=== PATIENT | female | born 1990 | race Caucasian/White ===

== ENCOUNTER 2023-01-12 04:41 | Inpatient (IN) | payer BC, SELFPAY ==
[2023-01-12] VITALS (217 sets, daily range): BP systolic 56–149; BP diastolic 40–125; PULSE 32–148; RESP 16–18; TEMP 36.3–37.3; O2SAT 89–100; BMI 41.2
--- NOTE | 2023-01-12 04:41 | LDADM ---
This patient, Malgorzata Gonzalez, was admitted to Labor/Delivery/Recovery 103 on 01/12/23 at 04:41. Plans for labor, pain management and were discussed with patient. Patient/family oriented to hospital policies and general routines including ID bracelet, bed and alarms, visiting hours, pain management, procedures, bathroom and other care routines, personal items, smoking policy, room service/diet and guest tray routines, security routines, and visiting hours. Patient/Family are encouraged to report perceived risks to care and to ask questions if they do not understand what they are told or what they should do. See OBIX for further documentation.
[2023-01-12 06:07] LABS: Basophils Absolute Auto 0.1 K/mm3 (0.0-0.1); Basophils Percent Auto 0.4 % (0.2-1.2); Eosinophils Absolute Auto 0.1 K/mm3 (0-0.3); Eosinophils Percent Auto 0.7 % (0-4.4); Hematocrit 37.9 % (37.0-47.0); Hemoglobin 13.4 g/dL (12.0-15.0); Immature Granulocyte Absolute 0.13 K/mm3 (0.00-0.031); Immature Granulocyte Percent A 1.1 % (0-0.5); Lymphocytes Absolute Auto 1.85 K/mm3 (0.9-3.2); Lymphocytes Percent Auto 15.5 % (18.3-44.2); Mean Corpuscular HGB Conc 35.4 g/dl (32-36); Mean Corpuscular Hemoglobin 32.8 pg (26-34); Mean Corpuscular Volume 92.7 fl (80-100); Mean Platelet Volume 9.4 fl (7.4-10.4); Monocytes Absolute Auto 0.8 K/mm3 (0.1-0.6); Monocytes Percent Auto 7.1 % (2.6-8.5); Neutrophils Percent Auto 75.2 % (45.5-73.1); Platelet Count Result 217 k/mm3 (150-375); Red Blood Count 4.09 M/mm3 (4.2-5.4); Red Cell Distribution Width 14.1 % (11.5-14.5); White Blood Count 11.9 K/mm3 (4.5-10.0)
[2023-01-12] MEDS: OXYTOCIN 30 UNITS/NS 500 ML 30 UNITS/500 ML BAG 6 UNITS IV CONT (09:10)
[2023-01-12] MEDS: LACTATED RINGERS 1,000 ML 125 ML IV CONT ×3 (09:13→16:40)
[2023-01-12 10:02] LABS: Rapid Plasma Reagin Non-Reactive (NonReactive)
--- NOTE | 2023-01-12 12:23 | WPDANESEPPF ---
Anes - Initial Pre Proc Eval Date/Time: 01/12/23 12:23 Surgeon: Edwin Schulz MD Pre Op Diagnosis: LABOR Patient Data Age: 32 Gender: F Height: 1.7 m Weight: 119.5 kg Last Vital Signs Temp 36.5 C 01/12/23 11:05 Pulse 90 01/12/23 12:15 Resp 16 01/12/23 05:30 BP 134/88 01/12/23 12:15 O2 Del Method Room Air 01/12/23 06:30 Allergies Allergy/AdvReac Type Severity Reaction Status Date / Time No Known Allergies Allergy Verified 12/29/22 14:29 Home Medications Medication Instructions Recorded Confirmed Type cholecalciferol (vitamin D3) 50 50 mcg PO DAILY 12/29/22 01/12/23 History mcg (2,000 unit) tablet prenat.vits,yuki,vzr-andq-bdrcq 1 tablet PO HS 12/29/22 01/12/23 History Colace 01/12/23 History Laboratory Tests 01/12/23 01/12/23 01/12/23 06:00 06:00 06:00 WBC 11.9 K/mm3 H K/mm3 (4.5-10.0) RBC 4.09 M/mm3 L M/mm3 (4.2-5.4) Hgb 13.4 g/dL g/dL (12.0-15.0) Hct 37.9 % % (37.0-47.0) MCV 92.7 fl fl (80-100) MCH 32.8 pg pg (26-34) MCHC 35.4 g/dl g/dl (32-36) RDW 14.1 % % (11.5-14.5) Plt Count 217 k/mm3 k/mm3 (150-375) MPV 9.4 fl fl (7.4-10.4) Immature Gran % (Auto) 1.1 % H % (0-0.5) Neut % (Auto) 75.2 % H % (45.5-73.1) Lymph % (Auto) 15.5 % L % (18.3-44.2) Price % (Auto) 7.1 % % (2.6-8.5) Eos % (Auto) 0.7 % % (0-4.4) Baso % (Auto) 0.4 % % (0.2-1.2) Lymph # (Auto) 1.85 K/mm3 K/mm3 (0.9-3.2) [place] # (Auto) 0.8 K/mm3 H K/mm3 (0.1-0.6) Eos # (Auto) 0.1 K/mm3 K/mm3 (0-0.3) Baso # (Auto) 0.1 K/mm3 K/mm3 (0.0-0.1) Abs Immat Gran (auto) 0.13 K/mm3 H K/mm3 (0.00-0.031) Absolute Neuts (auto) 9.0 K/mm3 H K/mm3 (1.3-6.7) Absolute Nucleated RBC 0.0 K/mm3 K/mm3 (0.0-0.012) Nucleated RBC % 0.0 % % (0.0-0.2) RPR Non-reactive (NonReactive) Blood Type A Positive Antibody Screen Negative Patient hx anesthesia problems: none Family hx anesthesia problems: none Results Review: All pre-operative results and documents have been reviewed as part of the pre-operative evaluation. [facility] Family History Family History (Updated 12/29/22 @ 14:34 by Neetu Gallo RN) Grandparent Leukemia Grandparent Breast cancer Mother Celiac disease Social History Social History Smoking status: Never smoker Second hand tobacco smoke exposure: No Substance use: never Spiritual care concerns: No Anes - Eval Final PreProcedure Day of Procedure 01/12/23 12:23 Patient weight: morbidly obese Heart: regular rate and rhythm Lungs: clear to auscultation and normal air movement Airway: Mallampati scale class II Neurological: alert and oriented Last oral intake: >/= 8 hours ASA classification: III Emergent: no Anesthetic plan: proceed Anesthesia type and monitoring: regional epidural Results Review: All pre-operative results and documents have been reviewed as part of the pre-operative evaluation. Informed Consent: The patient's anesthetic plan and its attendant risks and benefits were discussed with the patient/family/POA. Questions were solicited and answers provided to the satisfaction of the patient/family/POA.
--- NOTE | 2023-01-12 12:50 | WPDOBADMIT ---
Obstetrics - Admit Note Admission Note: record reviewed. Additions to the history and/or subsequent changes in the physical findings follow. 32 y/o at 38 5/7 weeks with SROM at 0200 today, clear fluid. Intermittent contractions. GBS neg. AVSS NST reactive TOCO: irregular contractions; ABD soft, nontender, gravid, vertex EXT nontender Cervix 2/80/-3. Vertex. AROM forebag, with clear fluid. IUPC placed. A: IUP at term with SROM. P: Augment labor as needed. Anticipate .
--- NOTE | 2023-01-12 12:52 | PM.OBPNLAB ---
Pain Control Date/time seen: 01/12/23 12:52 Comments: Receiving oxytocin. Feeling more pain. About to have epidural placed. Contractions Monitor mode: Internal Contraction frequency: 2 Contraction pattern: Regular Status status: Category l Assessment and Plan Plan: continuous present management
[2023-01-12] MEDS: PHENYLEPHRINE 1,000 MCG/10 ML SYRINGE 100 MCG IV PUSH (13:03)
--- NOTE | 2023-01-12 17:12 | PM.OBPNLAB ---
Pain Control Date/time seen: 01/12/23 17:12 Comments: Pain OK Pelvic Exam Dilation (cm): 6 Effacement (%): 90 station: -1 Contractions Monitor mode: Internal Contraction frequency: 2 Contraction pattern: Regular Status status: Category l Assessment and Plan Plan: continuous present management
--- NOTE | 2023-01-12 22:54 | P.PCNOB_ITS ---
OB - Delivery Note Procedure Delivery date: 01/12/23 Procedure: Induction method: None Delivery augmentation: Pitocin Delivery monitor: External FHT, External Uterine, Internal FHT and Internal Uterine Route of delivery: Laceration Description: Perineal - 2nd Degree Delivery repair: vicryl (3-0) Specimen: Yes (cord blood) Quantitative Blood Loss (ml): 450 Anesthesia type: Epidural Disposition: PACU Complications: None Narrative: 32 y/o at 38 5/7 weeks gestation who presented to the hospital after a gush of clear fluid. SROM was diagnosed. Oxytocin was administered intravenously for labor augmentation. Amniotomy of a forebag was performed with return of clear fluid. She received an epidural for pain control. Her labor p rogressed and her cervix dilated completely. She pushed with good effort and delivered the infant's head to the perineum. A loose nuchal cord was splinted and the body delivered. The nose and mouth were bulb suctioned. After a delay, the cord was clamped and cut. The infant was handed off the field. Cord blood was collected. The placenta delivered spontaneously and was grossly normal in appearance. The usual 3 vessel cord was noted. A second degree midline perineal laceration was sustained. This was reapproximated using 3 0 Vicryl in the usual layered fashion. Excellent hemostasis resulted as did excellent reapproximation of the normal anatomy. Needle and instrument counts were correct. The patient was taken to recovery room in stable condition. The infant went to the nursery in stable condition. I was present and scrubbed for the entire delivery. Baby Date of : 01/12/23 Time of : 22:25 Weeks of gestation at delivery: 38 Infant gender: Male Weight (pounds): 9 Weight (ounces): 4 presentation: vertex position: Right Occiput Anterior Placenta delivery description: Spontaneous and Normal Configuration Cord Vessel Description: 3 Vessels, Nuchal Cord and Delayed Cord Clamping score one minute: 6 score five minutes: 9
--- NOTE | 2023-01-12 22:57 | PM.OBDSVD ---
DS: Admitting Diagnosis Discharge Date 01/14/23 Admitting Diagnosis IUP at 38 5/7 weeks SROM DS: Discharge Diagnosis Discharge Diagnosis (1) (normal spontaneous vaginal delivery): Code(s): O80 - Encounter for full-term uncomplicated delivery Status: Acute OB - DS: Summary OB Procedures : None OB Procedures Intrapartum: Spontaneous Vag Delivery OB Procedures: : None Time Spent with Patient Time attestation: Total time spent providing and/or coordinating discharge services: DS: Data Data Completed and Pending Labs on day of discharge: Labs from last 24 hours 01/12/23 01/12/23 01/12/23 06:00 06:00 06:00 WBC 11.9 H RBC 4.09 L Hgb 13.4 Hct 37.9 MCV 92.7 MCH 32.8 MCHC 35.4 RDW 14.1 Plt Count 217 MPV 9.4 Immature Gran % (Auto) 1.1 H Neut % (Auto) 75.2 H Lymph % (Auto) 15.5 L [place] % (Auto) 7.1 Eos % (Auto) 0.7 Baso % (Auto) 0.4 Lymph # (Auto) 1.85 [place] # (Auto) 0.8 H Eos # (Auto) 0.1 Baso # (Auto) 0.1 Abs Immat Gran (auto) 0.13 H Absolute Neuts (auto) 9.0 H Absolute Nucleated RBC 0.0 Nucleated RBC % 0.0 RPR Non-reactive Blood Type A Positive Antibody Screen Negative Discharge Plan Discharge Attending physician on discharge: Edwin Schulz Discharging Clinician: Edwin Schulz Patient Disposition: Home, Self-Care Activity: pelvic rest Diet: regular Discharge Instructions: Call or return if temperature above 100.4? F, increased abdominal pain, increased vaginal bleeding or any new problems. Stand Alone Forms: General Discharge Information Follow-up/Referrals: Edwin Schulz MD [Physician] - 6 Weeks Discharge Medications: New ibuprofen 600 mg tablet 600 mg PO Q6H PRN (Reason: cramps) Qty: 30 0RF Continued #2 Tablet 1 tablet PO HS cholecalciferol (vitamin D3) 50 mcg (2,000 unit) Tablet 50 mcg PO DAILY Colace 100 mg Date of admission: 01/12/23 04:41 Primary Care Provider: Compa Gaxiolaitting Provider: Edwin Schulz Attending physician on admission: Edwin Schulz Condition: Stable
[2023-01-12] MEDS: OXYTOCIN 30 UNITS/NS 500 ML 30 UNITS/500 ML BAG 125 UNITS IV CONT (23:02)
[2023-01-13] VITALS (11 sets, daily range): BP systolic 123–140; BP diastolic 74–123; PULSE 88–126; RESP 16–18; TEMP 36.1–36.9; O2SAT 97–98
[2023-01-13] MEDS: BENZOCAINE 20% AER SPR (*SP) 56 GM CAN 1 SPRAY TOPICAL (01:00)
[2023-01-13] MEDS: WITCH HAZEL 40 PADS 1 PAD TOPICAL (01:00)
[2023-01-13] MEDS: IBUPROFEN 600 MG TABLET PO ×3 (01:00→16:29)
--- NOTE | 2023-01-13 02:55 | OBPPTRN ---
01/13/2023 at 0127 Patient transferred to post room #285 via wheelchair. Support person present. Oriented to unit, room, information board, rooming in, admission packet and security measures. Patient verbalizes understanding.
[2023-01-13] MEDS: ACETAMINOPHEN 325 MG TABLET 650 MG PO ×2 (04:23→19:20)
[2023-01-13 05:03] LABS: Hematocrit 31.4 % (37.0-47.0)
[2023-01-13] MEDS: MULTIVIT/MIN/PREN/FOL AC/IRON TABLET 1 TAB PO (07:39)
[2023-01-13] MEDS: DOCUSATE SODIUM 100 MG CAPSULE PO ×2 (07:39→16:29)
--- NOTE | 2023-01-13 09:27 | WPDANLDPN2 ---
Anes-Prog Note L&D Date/Time: 01/13/23 09:27 Comfortable throughout: labor and delivery Neuraxial method: epidural Epidural/Spinal procedure site: clean & non-tender Neuro status: Neuro function grossly intact. Cardiovascular status: normal Respiratory status: normal Airway patency: baseline Mental status: baseline Post-Op hydration status: normal Vital Signs: Last Vital Signs Temp 98.5 F 01/13/23 08:30 Pulse 97 01/13/23 08:30 Resp 18 01/13/23 08:30 BP 139/85 01/13/23 08:30 Pulse Ox 98 01/13/23 08:30 O2 Del Method Room Air 01/12/23 06:30 Pain score (VAS): 0/10 I/O: Intake & Output 01/12/23 01/13/23 01/13/23 23:59 07:59 15:59 Intake Total 1000 Output Total 450 350 Balance 550 -350 Post-procedural complaints: none Patient feedback: Patient satisfied with anesthetic care.
--- NOTE | 2023-01-13 13:18 | PM.OBPNVD ---
OB - PN: Subj Subjective Date/time seen: 01/13/23 13:18 Narrative: Pain OK. Would like circumcision for son. OB - PN: Obj Data Labs 01/13/23 04:20 Labs: Laboratory Results - last 24 hr 01/13/23 04:20 Hgb 11.0 L Hct 31.4 L OB - PN A/P Plan day: 1 Comments: A: PPD#1, doing well. P: Reviewed circ. Routine care. Exam Psych: Other: AVSS ABD soft, nontender, fundus firm EXT nontender
[2023-01-14] MEDS: IBUPROFEN 600 MG TABLET PO (04:53)
[2023-01-14 07:40] VITALS: BP 119/73; PULSE 88; RESP 16; TEMP 36.6; O2SAT 99
[2023-01-14] MEDS: ACETAMINOPHEN 325 MG TABLET 650 MG PO (07:50)
[2023-01-14] MEDS: DOCUSATE SODIUM 100 MG CAPSULE PO (07:52)
[2023-01-14] MEDS: MULTIVIT/MIN/PREN/FOL AC/IRON TABLET 1 TAB PO (07:52)
--- NOTE | 2023-01-14 09:09 | PM.OBPNVD ---
OB - PN: Subj Subjective Date/time seen: 01/14/23 09:09 Narrative: Pain OK. Would like to go home. OB - PN: Obj Data Labs 01/13/23 04:20 OB - PN A/P Plan Comments: A: PPD#2, doing well. P: Home to f/u 6 weeks. Time Spent With Patient Time with patient: less than 15 minutes Exam Psych: Other: AVSS ABD soft, nontender, fundus firm EXT nontender
[2023-01-15 15:42] VITALS: BP 131/88; PULSE 88; RESP 20; TEMP 37.2; O2SAT 99
== END 2023-01-14 12:05 | disposition home or self-care (01) | DRG 807 ==
LOC: ANHLDR 22:58 → ANHOB2 01-13 01:49
PROVIDERS: Admitting Provider Obstetrics & Gynecology; PCP Family Medicine; Visit Provider Obstetrics & Gynecology
DX: O69.81X0 Labor and delivery complicated by cord around neck, without compression, not applicable or unspecified (principal); Z37.0 Single live birth; O70.1 Second degree perineal laceration during delivery; Z3A.38 38 weeks gestation of pregnancy
CPT/HCPCS: 36415; 84112; 85014; 85018; 85025; 86592; 86850; 86900; 86901; A9270; J2370; J2590; J2795; J7120